=== PATIENT | female | born 1945 | race Caucasian/White ===

== ENCOUNTER 2019-01-30 13:40 | Emergency (ER) | payer BC, MEDICARE, SELFPAY ==
[2019-01-30 13:41] VITALS: BP 150/81; PULSE 97; RESP 22; TEMP 37.2; O2SAT 93; BMI 17.9
--- NOTE | 2019-01-30 13:42 | EKG12_ITS ---
Test Reason : WEAKNESS Blood Pressure : / mmHG Vent. Rate : 081 BPM Atrial Rate : 081 BPM P-R Int : 176 ms QRS Dur : 082 ms QT Int : 388 ms P-R-T Axes : 032 054 064 degrees QTc Int : 450 ms Normal sinus rhythm Normal ECG Confirmed by LUIGI MARLEY, LANCE ([id number]), health editor KIM OKEEFE ([id number]) on 02/01/2019 11:07:47 AM Referred By: JANINA Confirmed By:LANCE MEYERS MD
[2019-01-30 14:06] LABS: Absolute Lymphocyte Count 1.94 X10^3/ul (0.83-4.51); Absolute Neutrophil Count 6.6 X10^3/uL (2.0-7.7); Basophil# 0.02 X10^3/uL; Basophil% 0.2 % (0-1); Eosinophil# 1.69 X10^3/uL; Eosinophils% 15.2 % (0-5); Hematocrit 32.2 % (37-47); Hemoglobin 9.8 g/dl (12.0-15.0); Lymphocyte # 1.94 X10^3/ul (4.0); Lymphocyte % 17.4 % (19-41); Mean Corp Hgb Conc 30.4 g/gl (32-36); Mean Corpuscular Hgb 27.7 pg (27.0-32.0); Mean Platelet Vol. 9.5 fl (6.2-12.0); Monocyte# 0.86 X10^3/uL; Monocyte% 7.7 % (0-10); Neutrophil # 6.58 X10^3/uL (2.7-7.7); Neutrophil % 59.1 % (47-70); POSITIVE COUNT NO; POSITIVE DIFFERENTIAL NO; POSITIVE MORPHOLOGY NO; Platelet Count 514 K/mm3 (150-450); RBC Distribution Width CV 16.1 % (11.6-14.6); RBC Distribution Width SD 52.4 fl (35.1-43.9); Red Blood Count 3.54 M/mm3 (4.2-5.4); White Blood Count 11.1 K/mm3 (4.4-11.0)
[2019-01-30 14:42] LABS: Anion Gap 3 (5-15); BUN 24 mg/dL (7-18); BUN/Creat Ratio 27.6 RATIO (10-20); Calcium,Total 8.3 mg/dL (8.5-10.1); Chloride 113 mmol/L (98-107); Creatinine, Serum 0.87 mg/dL (0.55-1.02); EST Glomerular Filtration Rate 68 mL/min (>60); Est Glom Filt Rate - Afr Amer 82 mL/min (>60); Estimated Creatinine Clearance 45.78 ml/min; Glucose 108 mg/dL (74-106); Potassium 4.9 mmol/L (3.5-5.1); Sodium Level 141 mmol/L (136-145)
--- NOTE | 2019-01-30 15:08 | RAD_ITS ---
STUDY: X-RAY CHEST REASON FOR EXAM: Female, 73 years old. Cough TECHNIQUE: AP COMPARISON: 07/20/2017 FINDINGS: Surgical clips in the right axilla similar. Triangular pleural parenchymal fibrotic opacity at the right apex similar since the prior study. Right lung pulmonary granulomata stable. No airspace consolidation or pleural effusion. Normal size heart. Normal mediastinum and glenn. Normal visualized pulmonary arteries. There is atherosclerotic calcification of the aortic arch with tortuosity. No acute bony process. There is no demonstrated abnormality of the visualized soft tissue structures of the upper abdomen. RAD/Chest 1 View (Portable) IMPRESSION: Stable, nonacute x-ray examination of the chest. Electronically Signed: Stephan Ward MD at 15:34 EDT , Service support ,
--- NOTE | 2019-01-30 15:08 | ED.VISSUMM ---
- ER Visit Summary Date of Service: 01/30/19 Chief Complaint: Weakness History of Present Illness: The patient is a 73 F with weakness. Symptoms started 3 weeks ago and have gradually gotten worse. She felt worse today and came to the ED. She thought this might be related to anemia. She had anemia in the past and has required blood transfusions for hemoglobin of 4. She has also had iron infusions in the past and follows with Dr. Loza. Her workups from anemia have never found a source. Her problems with anemia. Patient does report some shortness of breath, cough, and sputum. She recently got over the flu. Denies chest pain or fevers. Denies leg swelling or calf pain. She is a smoker. Physical Examination: Afebrile and vital signs unremarkable. Patient is alert and oriented. No acute distress. Moving, breathing, sitting comfortably. HEENT exam unremarkable. Heart regular. Lungs clear. Abdomen soft and nontender. Skin normal in color without pallor or jaundice. Extremities nontender with no edema. Test Results: EKG showed sinus rhythm at a rate of 81. No sign of acute ischemia or infarction pattern. White count 11.1 and hemoglobin 9.8, improved from several years ago. Platelets 514. Chloride 113, glucose 108, BUN 24. Urinalysis and troponin are pending. Chest x-ray pending. Orthostatics pending. Emergency Department Course and Treatment: Patient presents with vague symptoms of weakness. She is concerned that this might be related to anemia. She does have anemia, but she is not at the level that would require transfusion or other emergency care. We will check for other sources including cardiac, respiratory, vascular, , metabolic, and infectious causes. Urinalysis, troponin, chest x-ray showed stable or chronic findings. Nothing acute. Orthostatic vital signs were negative. Patient will be discharged to follow-up for further outpatient care. No indication for additional emergency testing, intervention, hospitalization, or transfer. All questions were answered. Return for any new or worsening issues. Treatment Plan: As above Disposition: Discharge Impression: 1. Generalized fatigue This note was generated with [employer] software. It may contain incorrect words, spelling, and punctuation that were not noted in review of the chart prior to signing ED Disposition - Plan for ED Patient: Referrals: Nidia Curtis PA [Primary Care Provider] -
--- NOTE | 2019-01-30 15:11 | ED.DCSUM_ITS ---
- ER Visit Summary Date of Service: 01/30/19 Chief Complaint: Weakness History of Present Illness: The patient is a 73 F with weakness. Symptoms started 3 weeks ago and have gradually gotten worse. She felt worse today and came to the ED. She thought this might be related to anemia. She had anemia in the past and has required blood transfusions for hemoglobin of 4. She has also had iron infusions in the past and follows with Dr. Loza. Her workups from anemia have never found a source. Her problems with anemia. Patient does report some shortness of breath, cough, and sputum. She recently got over the flu. Denies chest pain or fevers. Denies leg swelling or calf pain. She is a smoker. Physical Examination: Afebrile and vital signs unremarkable. Patient is alert and oriented. No acute distress. Moving, breathing, sitting comfortably. HEENT exam unremarkable. Heart regular. Lungs clear. Abdomen soft and nontender. Skin normal in color without pallor or jaundice. Extremities nontender with no edema. Test Results: EKG showed sinus rhythm at a rate of 81. No sign of acute ischemia or infarction pattern. White count 11.1 and hemoglobin 9.8, improved from several years ago. Platelets 514. Chloride 113, glucose 108, BUN 24. Uri nalysis and troponin are pending. Chest x-ray pending. Orthostatics pending. Emergency Department Course and Treatment: Patient presents with vague symptoms of weakness. She is concerned that this might be related to anemia. She does have anemia, but she is not at the level that would require transfusion or other emergency care. We will check for other sources including cardiac, respiratory, vascular, , metabolic, and infectious causes. Urinalysis, troponin, chest x-ray showed stable or chronic findings. Nothing acute. Orthostatic vital signs were negative. Patient will be discharged to follow-up for further outpatient care. No indication for additional emergency testing, intervention, hospitalization, or transfer. All questions were answered. Return for any new or worsening issues. Treatment Plan: As above Disposition: Discharge Impression: 1. Generalized fatigue This note was generated with [employer] software. It may contain incorrect words, spelling, and punctuation that were not noted in review of the chart prior to signing ED Disposition - Plan for ED Patient: Referrals: Nidia Curtis PA [Primary Care Provider] -
[2019-01-30 15:21] VITALS: BP 140/70; BP 150/74; BP 154/79; PULSE 80; PULSE 82
[2019-01-30] MEDS: 0.9% Normal Saline 1,000 ML 1000 ML IV (15:24)
[2019-01-30 16:11] VITALS: BP 148/79; PULSE 81; RESP 16; O2SAT 97
[2019-01-30 16:14] LABS: Mucous, Urine 0 SEEN /hpf (<or=2+)
[2019-01-30 16:15] LABS: Color, Urine Yellow (Yellow); Glucose, Dipstick Normal (Normal); Ketone-Dipstick Negative (Negative); Leukocyte Esterase-Dipstick 500 /ul (Negative); Nitrite-Dipstick Negative (Negative); Occult Blood-Urine Negative /ul (Negative); Protein-Dipstick Negative (Negative); Urine Bilirubin Dipstick Negative (Negative); Urine Clarity Clear (Clear); Urine Urobilinogen Normal (Normal)
[2019-01-30 16:27] LABS: Bacteria RARE /hpf (None Seen); Red Blood Cells-Urine 0-5 SEEN /hpf (0-5); Squamous Epithelial Cells - UA 0-5 SEEN /hpf (5-10); White Blood Cells 0-5 SEEN /hpf (0-5)
--- NOTE | 2019-01-30 17:01 | ED.DEP ---
ED Disposition - Plan for ED Patient: Instructions: ED Weakness [facility] Referrals: Nidia Curtis PA [Primary Care Provider] - Loni Loza MD [STAFF PHYSICIAN] -
[2019-01-30 17:15] VITALS: BP 169/74; PULSE 91; RESP 17; O2SAT 94
== END 2019-01-30 17:16 | disposition home or self-care (01) ==
PROVIDERS: Emergency Provider Emergency Medicine; Family Provider Physician Assistant Medical; PCP Physician Assistant Medical
DX: R53.1 Weakness (principal); K21.9 Gastro-esophageal reflux disease without esophagitis; F17.200 Nicotine dependence, unspecified, uncomplicated
CPT/HCPCS: 71045; 80048; 81001; 84484; 85025; 93005; 96360; 96361; 99285; J7030; A4216

== ENCOUNTER 2021-01-30 14:50 | Emergency (ER) | payer BC, MEDICARE, SELFPAY ==
[2021-01-30 14:51] VITALS: BP 118/66; PULSE 88; RESP 15; TEMP 36.9; O2SAT 97; BMI 16.5
--- NOTE | 2021-01-30 15:10 | EKG12_ITS ---
Test Reason : WEAKNESS Blood Pressure : / mmHG Vent. Rate : 080 BPM Atrial Rate : 080 BPM P-R Int : 172 ms QRS Dur : 090 ms QT Int : 396 ms P-R-T Axes : 062 053 091 degrees QTc Int : 456 ms Normal sinus rhythm Nonspecific T wave abnormality Abnormal ECG Confirmed by IBIS MARLEY, BASHIR ([id number]), technical editor LEONELA CHURCHILL ([id number]) on 02/02/2021 2:56:48 PM Referred By: KADEEM Confirmed By:DAVID BAUMANN MD
--- NOTE | 2021-01-30 15:21 | ED.VIS.GEN ---
History of Present Illness Chief Complaint: Weakness Informant: Patient Narrative: Patient is a 75-year-old female with a past medical history of breast cancer currently undergoing chemotherapy, COPD who presents to the emergency department for generalized weakness. She states she has a hard time staying awake. She has had a steady decline over the past 2-1/2 weeks. She states she has felt the same whenever she has had low blood counts before. She does have a history of anemia and is on iron treatment. She has required transfusions before in the past. She does have darker stools but has had this chronically being on the iron therapy. She gets chemo treatments weekly. She does have a history of right partial mastectomy. She denies any significant shortness of breath past her baseline COPD. She does get some intermittent chest pain. She has been worked up for this previously. She also gets nausea and episodes of vomiting. She fluctuates bowel movements between diarrhea and constipation. She denies any urinary symptoms. Denies any leg swelling or calf pain. No history of DVT/PE. She denies any fevers but does get chills. Is a current everyday smoker. Past Medical History - Allergies and Home Meds Allergies/Adverse Reactions: Allergies No Known Allergies Allergy (Verified 01/30/21 14:51) Primary Care Physician: Nidia Curtis PA [Primary Care Provider] - 1-2 Days if not improving Prior records reviewed: Yes Surgical History: mastectomy, - Smoking Status: Current every day smoker Review of Systems All systems negative except as indicated General: Reports: Chills, Malaise. Denies: Fever, Sweats Eyes: Denies: Visual changes - bilaterally, Diplopia ENT: Denies: Rhinorrhea, Sore throat Cardiovascular: Reports: Chest pain. Denies: Palpitations Respiratory: Reports: Dyspnea, Cough Gastrointestinal: Reports: Nausea, Vomiting, Diarrhea, Constipation. Denies: Abdominal pain Genitourinary: Denies: Dysuria, Hematuria, Frequency Musculoskeletal: Denies: Back pain, Extremity Pain Skin: Denies: Rash, Wounds Neurological: Reports: Weakness - Generalized. Denies: Headache, Numbness Physical Exam Vital Signs/Narrative: Vital Signs Temp Pulse Resp BP Pulse Ox 01/30/21 14:51 98.5 F 88 15 118/66 97 Inital Vital Signs reviewed: Yes General: Well developed, No Acute Distress Head: Normocephalic, Atraumatic Eyes: Perrl, EOMI ENT: Moist mucous membranes, No rhinorrhea Neck: Supple, Nontender Cardiovascular: Regular rate, Regular rhythm, No murmurs Respiratory: No distress, CTA bilaterally, Chest nontender Abdomen: Soft, Nontender, Nondistended, Normal bowel sounds Back: Nontender, Normal Inspection Extremities: Nontender, No edema Skin: Normal color, No rash Neurological: Alert, Oriented x3, Cranial nerves II-XII grossly intact, Normal Strength, Normal Sensation Psychological: Normal affect, Normal Mood Diagnostic/Tx/Re-eval Chest X-Ray - ED: 1 View - Single view portable x-ray interpreted by myself. Clear lung alberts. No evidence of consolidation. No pleural effusions. Normal cardiac silhouette. Normal mediastinum. - EKG Initial EKG Interpretation: - - Rate of 80 bpm and normal sinus rhythm. Normal intervals. Normal axis. No significant ST elevations or depressions. - Medical Decision Making Patient presents to the emergency department for generalized weakness. She feels like she is anemic. Upon arrival to the emergency department vital signs within normal limits. She is in no acute distress. She does have a benign physical exam. She states her last CT scan was less than 1 month ago which included contrast of the full body. At this time will check basic lab work, EKG and chest x-ray. Patient's lab work shows a mild anemia but does not require transfusion. No other significant acute abnormality. Chest x-ray not show any signs of pneumonia. Her troponin is within normal limits. Patient is relieved at this information and she does feel comfortable going home. She is going to follow-up with her oncologist. Return precautions are reviewed with her. She understands and is agreeable with plan. She is discharged home in stable condition. All questions are answered. ED Disposition - Plan for ED Patient: Disposition: Home or Assisted Living Diagnosis: Generalized weakness Instructions: ED Weakness (Uncertain Cause) Prescriptions: Ondansetron [Zofran Odt] 4 mg PO Q8H PRN PRN #10 tablet PRN Reason: Nausea Prescription Printed Referrals: Nidia Curtis PA [Primary Care Provider] - 1-2 Days if not improving
[2021-01-30 15:48] LABS: Absolute Lymphocyte Count 1.43 X10^3/uL (0.83-4.51); Absolute Neutrophil Count 7.9 X10^3/uL (2.0-7.7); Basophil# 0.08 X10^3/uL; Basophil% 0.7 % (0-1); Eosinophil# 0.86 X10^3/uL; Eosinophils% 7.8 % (0-5); Hematocrit 33.5 % (37-47); Hemoglobin 10.1 g/dL (12.0-15.0); Lymphocyte # 1.43 X10^3/ul (4.0); Lymphocyte % 12.9 % (19-41); Mean Corp Hgb Conc 30.1 g/dL (32-36); Mean Corpuscular Hgb 28.7 pg (27.0-32.0); Mean Corpuscular Volume 95.2 fL (81-99); Mean Platelet Vol. 9.8 fl (6.2-12.0); Monocyte# 0.73 X10^3/uL; Monocyte% 6.6 % (0-10); NRBC Flagged by Analyzer 0 % (0-5); Neutrophil # 7.93 X10^3/uL (2.7-7.7); Neutrophil % 71.5 % (47-70); Platelet Count 414 K/mm3 (150-450); RBC Distribution Width CV 14.1 % (11.6-14.6); RBC Distribution Width SD 48.2 fl (35.1-43.9); Red Blood Count 3.52 M/mm3 (4.2-5.4); White Blood Count 11.1 K/mm3 (4.4-11.0)
--- NOTE | 2021-01-30 16:00 | RAD_ITS ---
INDICATION: Chest pain EXAMINATION/TECHNIQUE: X-RAY - XR Chest 1 View COMPARISON: 01/30/2019. FINDINGS: Chronic lung changes. The lungs are otherwise clear. Tortuous and calcified thoracic aorta. The heart is not enlarged. Postsurgical changes in the right axilla. No pleural effusion or pneumothorax. Senescent changes of the bones. RAD/Chest 1 View (Portable) IMPRESSION: No acute radiographic abnormalities. Electronically Signed: Quincy Wilder MD at 16:34 EDT Tel , Service support ,
[2021-01-30 16:09] LABS: Anion Gap 3 (5-15); BUN 26 mg/dL (7-18); BUN/Creat Ratio 24.8 RATIO (10-20); Calcium,Total 9.4 mg/dL (8.5-10.1); Chloride 112 mmol/L (98-107); Creatinine, Serum 1.05 mg/dL (0.55-1.02); EST Glomerular Filtration Rate 54 mL/min (>60); Est Glom Filt Rate - Afr Amer 66 mL/min (>60); Estimated Creatinine Clearance 33.81 ml/min; Glucose 143 mg/dL (74-106); Magnesium 2.3 mg/dL (1.6-2.6); Potassium 4.2 mmol/L (3.5-5.1); Sodium Level 141 mmol/L (136-145)
[2021-01-30 16:20] LABS: Mucous, Urine 0 SEEN /hpf (<or=2+); Red Blood Cells-Urine 0 SEEN /hpf (0-5); Squamous Epithelial Cells - UA 0 SEEN /hpf (5-10); White Blood Cells 0 SEEN /hpf (0-5)
[2021-01-30 16:22] LABS: Color, Urine Yellow (Yellow); Glucose, Dipstick Normal (Normal); Ketone-Dipstick Negative (Negative); Leukocyte Esterase-Dipstick 25 /ul (Negative); Nitrite-Dipstick Negative (Negative); Occult Blood-Urine Negative /ul (Negative); Protein-Dipstick 30 mg/dl (Negative); Urine Bilirubin Dipstick Negative (Negative); Urine Clarity Clear (Clear); Urine Urobilinogen Normal (Normal)
[2021-01-30 16:41] LABS: Bacteria 1+ /hpf (None Seen); Hyaline Cast 0-5 SEEN /lpf (0-5)
[2021-01-30 16:55] VITALS: BP 163/79; PULSE 78; PULSE 79; RESP 18; O2SAT 95; O2SAT 99
== END 2021-01-30 16:58 | disposition home or self-care (01) ==
PROVIDERS: Emergency Provider Emergency Medicine; PCP Physician Assistant Medical
DX: R53.1 Weakness (principal); F17.200 Nicotine dependence, unspecified, uncomplicated; Z85.3 Personal history of malignant neoplasm of breast
CPT/HCPCS: 71045; 80048; 81001; 83735; 84484; 85025; 93005; 99282